=== PATIENT | male | born 2000 | race Hispanic/Latino ===

== ENCOUNTER 2023-04-19 18:09 | Emergency (ER) | payer OTHER ==
[~2023-04-19] VITALS: Ht 157.5 cm; Wt 88.5 kg
[2023-04-19] MEDS ORDERED: NEOMY SULF/BACITRA/POLYMYXIN B 1 EACH PACKET TP ONE (19:00)
[2023-04-19] MEDS ORDERED: IBUPROFEN 800 MG TAB PO ONE (19:00)
[2023-04-19] MEDS ORDERED: LIDOCAINE HCL 1% 20 ML VIAL MISC SCH (20:30)
[2023-04-19] MEDS ORDERED: BACITRACIN 1 EACH PACKET TP ONE (22:38)
[2023-04-19 23:46] VITALS: BP 134/78; PULSE 88; RESP 16; O2SAT 99
== END 2023-04-20 | disposition home or self-care (01) ==
LOC: EDH 18:09
DX: S01.01XA Laceration without foreign body of scalp, initial encounter (principal); W14.XXXA Fall from tree, initial encounter; Y93.89 Activity, other specified; Y92.89 Other specified places as the place of occurrence of the external cause; Y99.8 Other external cause status
CPT/HCPCS: 12002